=== PATIENT | male | born 1955 | race Caucasian/White ===

== ENCOUNTER → 2020-11-23 | Outpatient (CLI) | payer MEDICARE ==
[2020-11-28 16:07] LABS: HSV-1 DNA Negative (Negative); HSV-2 DNA Negative (Negative)
== END ==
LOC: LAB SHORT 09:50 → LAB 09:50
PROVIDERS: Physician Assistant Medical
DX: B02.9 Zoster without complications (principal)
CPT/HCPCS: 87529

== ENCOUNTER 2024-05-05 05:07 | Emergency (ER) | payer OTHER ==
[~2024-05-05] VITALS: Ht 167.6 cm; Wt 86.2 kg
[2024-05-05 05:47] LABS: BASOPHILS ABSOLUTE AUTO 0.04 K/mm3 (0.00-0.23); BASOPHILS PERCENT AUTO 1 % (0-2); EOSINOPHILS PERCENT AUTO 3 % (0-6); Hematocrit 36.5 % (37.0-53.0); Hemoglobin 12.8 g/dL (13.5-17.5); IMMATURE GRAN ABSOLUTE AUTO 0.03 K/mm3 (0.00-0.10); IMMATURE GRAN PERCENT AUTO 1 % (0-1); LYMPHOCYTES ABSOLUTE AUTO 1.46 K/mm3 (0.84-5.20); LYMPHOCYTES PERCENT AUTO 22 % (21-46); MONOCYTES ABSOLUTE AUTO 0.65 K/mm3 (0.16-1.47); MONOCYTES PERCENT AUTO 10 % (4-13); Mean Corpuscular HGB 31.1 pg (26.0-34.0); Mean Corpuscular HGB Conc 35.1 g/dL (31.5-36.5); Mean Corpuscular Volume 89 fL (80-100); Mean Platelet Volume 9.6 fL (9.1-12.4); NEUTROPHILS ABSOLUTE AUTO 4.14 K/mm3 (1.96-9.15); NEUTROPHILS PERCENT AUTO 63 % (41-73); Platelet Count 293 K/mm3 (150-400); RDW Coefficient Variation 12.9 % (11.7-14.2); RDW Standard Deviation 41.9 fL (35.1-46.3); Red Blood Cell Count 4.12 M/mm3 (4.30-5.90); White Blood Cell Count 6.52 K/mm3 (4.00-11.30)
[2024-05-05 06:10] LABS: Albumin, Blood 3.8 g/dL (3.4-5.0); Bilirubin, Total 0.5 mg/dL (0.1-1.0); Bun/Creatinine Ratio 21.6 (12.0-20.0); Calcium, Blood 9.4 mg/dL (8.5-10.1); Creatinine, Blood 0.84 mg/dL (0.60-1.20); Globulin, Blood 3.7 g/dL (2.2-4.0); Potassium, Blood 4.1 mmol/L (3.5-5.5); Total Protein, Blood 7.5 g/dL (6.4-8.2)
[2024-05-05 08:43] LABS: Free Thyroxine 1.33 ng/dL (0.70-1.60); Thyroid Stimulating Hormone 4.89 uIU/mL (0.360-4.800)
[2024-05-05] MEDS ORDERED: LISI20 PO (09:13)
[2024-05-05 09:27] VITALS: BP 140/88
[2024-05-05] MEDS ORDERED: METOPROLOL SUCC ER 5 (09:28)
[2024-05-05] MEDS ORDERED: CELE100 PO (09:28)
[2024-05-05] MEDS ORDERED: TAMSULOSIN HCL0.4 M1 PO (09:28)
[2024-05-05] MEDS ORDERED: TIZANIDINE HCL213 PO (09:28)
[2024-05-05] MEDS ORDERED: EUTHYROX125 MC1 PO (09:29)
[2024-05-05] MEDS ORDERED: OMEP20ER PO (09:29)
== END 2024-05-05 09:39 | disposition home or self-care (01) ==
LOC: ER 05:07
PROVIDERS: Emergency Medicine; Student in an Organized Health Care Education/Training Program
DX: R00.0 Tachycardia, unspecified (principal); E87.1 Hypo-osmolality and hyponatremia; I10 Essential (primary) hypertension
CPT/HCPCS: 80053; 83735; 84439; 84443; 84484; 85025; 93005; 93010; 93242; 99285-25

== ENCOUNTER → 2024-07-31 | Outpatient (CLI) | payer OTHER ==
[~2024-07-31] MED LIST: CELE100 PO; EUTHYROX125 MC1 PO; LISI20 PO; METOPROLOL SUCC ER 5; OMEP20ER PO; TAMSULOSIN HCL0.4 M1 PO; TIZANIDINE HCL213 PO
[2024-07-31 16:02] LABS: Sodium, Urine, Random 30 mmol/L (20-110)
[2024-07-31 17:31] LABS: Osmolality, Urine 250 mos/kg (15-1400)
== END ==
LOC: LAB 12:57 → LAB SHORT 12:57
PROVIDERS: Physician Assistant
DX: E87.1 Hypo-osmolality and hyponatremia (principal)
CPT/HCPCS: 83935; 84300